=== PATIENT | female | born 1965 | race Caucasian/White ===

== ENCOUNTER → 2016-08-15 | Outpatient (CLI) | payer BC ==
[~2016-08-15] MED LIST: ALEVE220 MG PO; ASPIRIN81 M1 PO; LISINOPRIL HCTZ1 TA1 PO
== END ==
LOC: MAMMO 17:20
DX: Z12.31 Encounter for screening mammogram for malignant neoplasm of breast (principal)

== ENCOUNTER → 2018-08-12 | Outpatient (CLI) | payer BC | END | disposition home or self-care (01) | LOC: RAD 14:09 | DX: J40 Bronchitis, not specified as acute or chronic (principal); R06.2 Wheezing; R05 Cough ==

== ENCOUNTER 2022-01-20 16:22 | Emergency (ER) | payer BC ==
[2022-01-20 16:30] VITALS: BP 111/85
[2022-01-20 17:15] LABS: BASO % 0.6 % (0.0-1.0); EOS % 0.1 % (1.0-4.0); HEMATOCRIT 43.9 % (37.0-47.0); LYMPH # 0.7 10*3/uL (1.3-4.4); LYMPH % 10.4 % (27.0-41.0); MEAN CELL VOLUME 86.6 fl (81.0-99.0); MEAN CORPUSCULAR HGB CONC 34.6 g/dl (33.0-37.0); MEAN PLATELET VOLUME 8.6 fl (9.6-12.3); MONO # 0.6 10*3/uL (0.1-1.0); MONO % 8.3 % (3.0-9.0); NEUT # 5.6 10*3/uL (2.3-7.9); NEUT % 80.3 % (47.0-73.0); PLATELET COUNT AUTOMATED 237 10*3/uL (130-400); RED BLOOD COUNT 5.07 10*6/uL (4.10-5.10); RED CELL DISTRI WIDTH 12.6 % (0-14.5)
[2022-01-20 17:30] LABS: CREATININE 1.14 mg/dL (0.55-1.02); POTASSIUM 2.9 mmol/L (3.5-5.1); TOTAL PROTEIN 8.5 gm/dL (6.4-8.2)
[2022-01-20 18:46] LABS: BILIRUBIN Negative (Negative); BLOOD Trace-Lysed (Negative); CLARITY Clear (Clear); COLOR Yellow (Yellow); GLUCOSE Negative (Negative); KETONE Negative (Negative); LEUKO ESTERASE Negative (Negative); NITRITE Negative (Negative); UROBILINOGEN 0.2 E.U./dl (0.0-1.0)
[2022-01-20 19:05] LABS: BACTERIA 1+; EPITHELIAL CELLS 0-2; HYALINE CAST 0-2; MUCOUS 1+; WBC 0-2 wbc/hpf (0-5)
[2022-01-20] MEDS ORDERED: PREDNISONE20 M1 PO (19:05)
== END 2022-01-20 19:12 | disposition home or self-care (01) ==
LOC: ED 16:22
PROVIDERS: Family Medicine
DX: B34.9 Viral infection, unspecified (principal); Z20.822 Contact with and (suspected) exposure to COVID-19; Z79.899 Other long term (current) drug therapy; Z79.82 Long term (current) use of aspirin; Z98.51 Tubal ligation status; Z98.890 Other specified postprocedural states

== ENCOUNTER 2023-01-31 14:29 | Emergency (ER) | payer BC ==
[~2023-01-31] VITALS: Ht 170.1 cm; Wt 113.4 kg
[~2023-01-31 14:29] MED LIST changes: +PREDNISONE20 M1 PO
[2023-01-31 14:43] VITALS: BP 106/90
[2023-01-31] MEDS ORDERED: CLARITIN10 MG PO (14:44)
== END 2023-01-31 18:39 | disposition left against medical advice (07) ==
LOC: ED 14:29
DX: U07.1 COVID-19 (principal); R09.81 Nasal congestion; R50.9 Fever, unspecified; R19.7 Diarrhea, unspecified; Z91.018 Allergy to other foods; Z53.21 Procedure and treatment not carried out due to patient leaving prior to being seen by health care provider

== ENCOUNTER → 2025-01-13 | Outpatient (CLI) | payer BC ==
[~2025-01-13] MED LIST changes: +CLARITIN10 MG PO
== END | disposition home or self-care (01) ==
LOC: MAMMO 15:28
PROVIDERS: ATTEND Nurse Practitioner Primary Care
DX: Z12.31 Encounter for screening mammogram for malignant neoplasm of breast (principal); R92.313 Mammographic fatty tissue density, bilateral breasts; R92.1 Mammographic calcification found on diagnostic imaging of breast